=== PATIENT | male | born 1995 | race African-American/Black ===

== ENCOUNTER 2017-01-30 23:41 | Emergency (ER) | payer BC ==
[2017-01-30 23:58] VITALS: TEMP 98.3; BMI 20.7
--- NOTE | 2017-01-31 00:25 | PDOC ---
History of Present Illness - General History Source: Patient Exam Limitations: No Limitations - History of Present Illness Initial Comments: The patient is a 21 yo M with a prior history of asthma who presents with diffuse abdominal pain since earlier today. Patient states he was playing basketball earlier today then later felt the abdominal pain. Patient denies nausea, vomiting and diarrhea. Patient denies hematochezia and melena. Patient denies testicular pain. Patient denies new foods. PCP: Dr. Melgar <Yadira Aburto - Last Filed: 01/31/17 00:29> <Shea Saucedo - Last Filed: 01/31/17 02:49> - General Chief Complaint: Pain Stated Complaint: STOMACH PAIN Time Seen by Provider: 01/31/17 00:03 Past History <Yadira Aburto - Last Filed: 01/31/17 00:29> - Psycho/Social/Smoking Cessation Hx Suicidal Ideation: No Smoking Status: No Smoking History: Current some day smoker Have you smoked in the past 12 months: No Number of Cigarettes Smoked Daily: 0 Information on smoking cessation initiated: No Hx Alcohol Use: No Drug/Substance Use Hx: No <Shea Saucedo - Last Filed: 01/31/17 02:49> - Past Medical History Allergies/Adverse Reactions: Allergies Allergy/AdvReac Type Severity Reaction Status Date / Time No Known Allergies Allergy Verified 01/07/16 04:39 Home Medications: Ambulatory Orders No Home Medications 0 dose .ROUTE UTDICT 10/28/12 Review of Systems - Review of Systems Able to Perform ROS?: Yes Comments:: CONSTITUTIONAL: Absent: fever, chills, diaphoresis, generalized weakness, malaise, loss of appetite HEENT: Absent: rhinorrhea, nasal congestion, throat pain, throat swelling, difficulty swallowing, mouth swelling, ear pain, eye pain, visual Changes CARDIOVASCULAR: Absent: chest pain, syncope, palpitations, irregular heart rate, lightheadedness , peripheral edema RESPIRATORY: Absent: cough, shortness of breath, dyspnea with exertion, orthopnea, wheezing, stridor, hemoptysis GASTROINTESTINAL: +abdominal pain Absent:abdominal distension, nausea, vomiting, diarrhea, constipation, melena, hematochezia GENITOURINARY: Absent: dysuria, frequency, urgency, hesitancy, hematuria, flank pain, genital pain MUSCULOSKELETAL: Absent: myalgia, arthralgia, joint swelling SKIN: Absent: rash, itching, pallor NEUROLOGIC: Absent: headache, focal weakness or paresthesia, dizziness, unsteady gait, seizure, mental status changes, bladder or bowel incontinence PSYCHIATRIC: Absent: anxiety, depression, suicidal or homicidal ideation, hallucinations <Yadira Aburto - Last Filed: 01/31/17 00:29> *Physical Exam - Vital Signs Last Vital Signs Temp Pulse Resp BP Pulse Ox 98.3 F 65 18 126/58 99 01/30/17 23:54 01/30/17 23:54 01/30/17 23:54 01/30/17 23:54 01/30/17 23:54 - Physical Exam Comments: GENERAL: Well developed, well nourished. Awake and alert. No acute distress. HEENT: Normocephalic, atraumatic. PERRLA, EOMI. No conjunctival pallor. Sclera are non- icteric. Moist mucous membranes. Oropharynx is clear. NECK: Supple. Full ROM. No JVD. Carotid pulses 2+ and symmetric, without bruits. No thyromegaly. No lymphadenopathy. CARDIOVASCULAR: Regular rate and rhythm. No murmurs, rubs, or gallops. Distal pulses are 2+ and symmetric. PULMONARY: No evidence of respiratory distress. Decreased breath sounds in R lung. No wheezing, rales or rhonchi. ABDOMINAL: Soft. Non-tender. Non-distended. No rebound or guarding. No organomegaly. Normoactive bowel sounds. MUSCULOSKELETAL Normal range of motion at all joints. No bony deformities or tenderness. No CVA tenderness. EXTREMITIES: No cyanosis. No clubbing. No edema. No calf tenderness. SKIN: Warm and dry. Normal capillary refill. No rashes. No jaundice. NEUROLOGICAL: Alert, awake, appropriate. Cranial nerves 2-12 intact. No deficits to light touch and temperature in face, upper extremities and lower extremities. No motor deficits in the in face, upper extremities and lower extremities. Normoreflexic in the upper and lower extremities. Normal speech. Toes are down-going bilaterally. Gait is normal without ataxia. PSYCHIATRIC: Cooperative. Good eye contact. Appropriate mood and affect <Yadira Aburto - Last Filed: 01/31/17 00:29> - Vital Signs Last Vital Signs Temp Pulse Resp BP Pulse Ox 98.3 F 65 18 126/58 99 01/30/17 23:54 01/30/17 23:54 01/30/17 23:54 01/30/17 23:54 01/30/17 23:54 <Shea Saucedo - Last Filed: 01/31/17 02:49> ED Treatment Course - LABORATORY CBC & Chemistry Diagram: 01/31/17 01:30 01/31/17 01:30 <Shea Saucedo - Last Filed: 01/31/17 02:49> Medical Decision Making - Medical Decision Making 01/31/17 01:24 21-year-old male presents with abdominal pain since playing basketball at 8 PM today. No nausea, vomiting or diarrhea. No fever or chills. On exam, he has complaint of epigastric discomfort. He also has decreased breath sounds on the right -He asked him about a testicular pain and he denied it Denies any significant past medical history Denies any significant surgical history Plan CBC, chemistry, a urinalysis and chest x-ray 01/31/17 02:42 X-ray is napd CBC is unremarkable chemistries show an elevated total bili at 1.8 Transaminases slightly elevated to 40 There is no supervisor pyrotechnic loading here at the moment. I suspect he has gallstones. -he had a benign abdominal exam with no rebound or tenderness. - he has no fever or chills or nausea or vomiting. I will discharge him with instructions to avoid fatty or fried foods. I recommend he return if he has any worsening symptoms. Otherwise, he should follow up with primary care doctor and get a gallbladder ultrasound IMP epigastric pain <Shea Saucedo - Last Filed: 01/31/17 02:49> *DC/Admit/Observation/Transfer - Attestations Scribe Attestion: Documentation prepared by Ydaira Aburto, acting as medical staff services coordinator for Shea Saucedo MD/DO. <Yadira Aburto - Last Filed: 01/31/17 00:29> <Shea Saucedo - Last Filed: 01/31/17 02:49> Diagnosis at time of Disposition: Epigastric pain - Discharge Dispostion Disposition: HOME Condition at time of disposition: Stable - Patient Instructions Printed Discharge Instructions: DI for Epigastric Pain Additional Instructions: -please avoid fatty or fried foods -followup with your regular physician -I recommend an ultrasound to evaluate your gallbladder
[2017-01-31 01:24] LABS: URINE APPEARANCE CLEAR; URINE BILIRUBIN NEGATIVE (NEGATIVE); URINE BLOOD NEGATIVE (NEGATIVE); URINE COLOR YELLOW; URINE GLUCOSE (UA) NEGATIVE (NEGATIVE); URINE KETONE NEGATIVE (NEGATIVE); URINE LEUK ESTERASE NEGATIVE (NEGATIVE); URINE NITRITE NEGATIVE (NEGATIVE); URINE UROBILINOGEN 2.0 E.U/dl E.U./dl (0.2-1.0)
[2017-01-31] MEDS ORDERED: ACETAMINOPHEN 325 MG TABLET (FP) PO ONE (01:26)
[2017-01-31 01:28] LABS: URINE PROTEIN 1+ (NEGATIVE)
[2017-01-31 01:29] LABS: URINE MUCUS RARE; URINE RBC <1 /hpf (0-3); URINE WBC 1 /hpf (3-5)
[2017-01-31] MEDS ORDERED: ACETAMINOPHEN 325 MG TABLET (FP) ONE (01:43)
[2017-01-31 01:52] LABS: BASOPHIL 0.5 % (0-2.0); EOSINOPHIL 1.9 % (0-4.5); MCH 29.2 pg (25.7-33.7); MCHC 33.3 g/dl (32.0-35.9); MEAN CELL VOLUME 87.9 fl (80-96); MEAN PLT VOLUME 7.9 fl (7.5-11.1); NEUTROPHILS 73.2 % (42.8-82.8); PLATELET COUNT 246 K/MM3 (134-434); WHITE BLOOD COUNT 7.1 K/mm3 (4.0-10.0)
[2017-01-31 02:30] LABS: ALBUMIN 4.5 g/dl (3.4-5.0); ALK PHOS 60 U/L (45-117); ANION GAP 9 (8-16); BILIRUBIN,TOTAL 1.8 mg/dL (0.2-1.0); CALCIUM 9.5 mg/dL (8.5-10.1); CO2 31 mmol/L (21-32); CREATININE 1.3 mg/dL (0.7-1.3); GLUCOSE,RANDOM 93 mg/dL (74-106); SGOT/AST 40 U/L (15-37); SGPT/ALT 25 U/L (12-78)
[2017-01-31 03:05] VITALS: BP 114/66; PULSE 61
== END 2017-01-31 03:03 | disposition home or self-care (01) ==
LOC: JER 23:41
DX: R10.13 Epigastric pain (principal)
CPT/HCPCS: 36415; 71020-TC; 80053; 81003; 81015; 85025; 99282-25

== ENCOUNTER 2018-05-21 10:09 | Emergency (ER) | payer BC ==
[2018-05-21 10:43] VITALS: BP 123/81; PULSE 75; TEMP 98.9; BMI 21.9
--- NOTE | 2018-05-21 11:33 | PDOC ---
History of Present Illness - General Chief Complaint: Sore Throat Stated Complaint: SORE THROAT Time Seen by Provider: 05/21/18 11:05 History Source: Patient Exam Limitations: No Limitations - History of Present Illness Initial Comments: 05/21/18 11:14 c/o sore throat for 4-5 days getting worse. Past History - Past Medical History Allergies/Adverse Reactions: Allergies Allergy/AdvReac Type Severity Reaction Status Date / Time No Known Allergies Allergy Verified 05/21/18 10:40 Home Medications: Ambulatory Orders No Home Medications 0 dose .ROUTE UTDICT 10/28/12 Dexamethasone [Decadron] 8 mg PO ONCE #2 tablet 05/21/18 Penicillin V Potassium [Pen Vee K -] 250 mg PO QID #40 tablet 05/21/18 COPD: No - Suicide/Smoking/Psychosocial Hx Smoking Status: No Smoking History: Current some day smoker Have you smoked in the past 12 months: No Number of Cigarettes Smoked Daily: 0 Information on smoking cessation initiated: No Hx Alcohol Use: No Drug/Substance Use Hx: No Review of Systems - Review of Systems Able to Perform ROS?: Yes Is the patient limited Bermudian proficient: No Constitutional: No: Symptoms Reported HEENTM: Yes: Symptoms Reported Respiratory: No: Symptoms reported *Physical Exam - Vital Signs Last Vital Signs Temp Pulse Resp BP Pulse Ox 98.9 F 75 16 123/81 99 05/21/18 10:41 05/21/18 10:41 05/21/18 10:41 05/21/18 10:41 05/21/18 10:41 - Physical Exam General Appearance: Yes: Nourished, Appropriately Dressed HEENT: positive: EOMI, MEGAN, TMs Normal, Pharyngeal Erythema, Tonsillar Exudate , Tonsillar Erythema (bilateral exudates) Neck: positive: Supple Respiratory/Chest: positive: Lungs Clear, Normal Breath Sounds Cardiovascular: positive: Regular Rhythm, Regular Rate Gastrointestinal/Abdominal: positive: Normal Bowel Sounds, Soft Musculoskeletal: positive: Normal Inspection Extremity: positive: Normal Capillary Refill, Normal Inspection, Normal Range of Motion Integumentary: positive: Normal Color, Dry, Warm Neurologic: positive: Fully Oriented, Alert, Normal Mood/Affect, Normal Response , Motor Strength 5/5 Medical Decision Making - Medical Decision Making 05/21/18 11:15 sore throat 4 days no fever, had URI symptoms prior to sore throat exam positive for strep will treat with amox decadron one dose *DC/Admit/Observation/Transfer Diagnosis at time of Disposition: Strep pharyngitis - Discharge Dispostion Disposition: HOME Condition at time of disposition: Good - Prescriptions Prescriptions: Dexamethasone [Decadron] 8 mg PO ONCE #2 tablet Penicillin V Potassium [Pen Vee K -] 250 mg PO QID #40 tablet - Referrals Referrals: Jimmie Melgar MD [Primary Care Provider] - - Patient Instructions Printed Discharge Instructions: DI for Strep Throat Additional Instructions: gargle with warm salt water 4-5 times a day take penvk for 10 days take the one dose of decadron this will help with the pain take ibuprofen 600mg every 8hrs for pain return if worse - Post Discharge Activity Forms/Work/School Notes: Back to Work
== END 2018-05-21 12:28 | disposition home or self-care (01) ==
LOC: JERFT 10:09
DX: J02.0 Streptococcal pharyngitis (principal); B95.5 Unspecified streptococcus as the cause of diseases classified elsewhere
CPT/HCPCS: 99281-25

== ENCOUNTER 2019-03-29 19:32 | Emergency (ER) | payer BC ==
[2019-03-29 19:41] VITALS: BP 138/67; PULSE 75; TEMP 98.1; BMI 22.2
[2019-03-29] MEDS ORDERED: BACITRACIN 0.9 GM PACKET TP ONE (20:02)
--- NOTE | 2019-03-29 20:08 | PDOC ---
History of Present Illness - General Chief Complaint: Wound Stated Complaint: LEG WOUND 03/29/2019 Time Seen by Provider: 03/29/19 19:53 History Source: Patient Exam Limitations: No Limitations - History of Present Illness Initial Comments: 03/29/19 20:03 HISTORY OF PRESENT ILLNESS: This is a right-hand dominant 23-year-old man with denies medical history presents emergency department for reevaluation of puncture wound sustained at 3 AM. Patient reports he was out with his friends and was involved in a [place] where he tried to climb over a fence unsuccessfully. Patient reports he got to the top of the fence and there were some sharp edges causing him to scrape his left shoulder and sustained multiple puncture wounds to left hand and left posterior thigh. Patient reports was seen at [facility] last night was given a tetanus booster at that time. Patient does not believe he received medical care and is here for reevaluation of injuries. No recent travel or sick contacts. PAST MEDICAL HISTORY: Denies past medical history SURGICAL HISTORY: Denies ALLERGIES: No known drug allergies REVIEW OF SYSTEMS General/Constitutional: Denies fever or chills. Denies weakness, weight change. HEENT: Denies change in vision. Denies ear pain or discharge. Denies sore throat. Cardiovascular: Denies chest pain or shortness of breath. Respiratory: Denies cough, wheezing, or hemoptysis. Gastrointestinal: Denies nausea, vomiting, diarrhea or constipation. Denies rectal bleeding. Genitourinary: Denies dysuria, frequency, or change in urination. Musculoskeletal: see HPI Skin and breasts: see HPI Neurologic: Denies headache, vertigo, loss of consciousness, or loss of sensation. Psychiatric: Denies depression or anxiety. Endocrine: Denies increased thirst. Denies abnormal weight change. Hematologic/Lymphatic: Denies anemia, easy bleeding, or history of blood clots. Allergic/Immunologic: Denies hives or skin allergy. Denies latex allergy. PHYSICAL EXAM General Appearance: Well-appearing, appropriately dressed. No apparent distress , no intoxication. HEENT: EOMI, PERRLA, normal ENT inspection, normal voice, TMs normal, pharynx normal. No conjunctival pallor. No photophobia, scleral icterus. Neck: Supple. Trachea midline. No tenderness, rigidity, carotid bruit, stridor , lymphadenopathy, or thyromegaly. Respiratory/Chest: Lungs CTAB. No shortness of breath, chest tenderness, respiratory distress, accessory muscle use. No crackles, rales, rhonchi, stridor , wheezing, dullness Cardiovascular: RRR. S1, S2. No JVD, murmur, bradycardia, tachycardia. Vascular Pulses: Dorsalis-Pedis (R): 2+, Dorsalis-Pedis (L): 2+ Gastrointestinal/Abdominal: Normal bowel sounds. Abdomen soft, non-distended. No tenderness or rebound tenderness. No organomegaly, pulsatile mass, guarding, hernia, hepatomegaly, splenomegaly. Lymphatic: No adenopathy, tenderness. Musculoskeletal/Extremities: Normal inspection. FROM of all extremities, normal capillary refill. Pelvis Stable. No CVA tenderness. No tenderness to extremities, pedal edema, swelling, erythema or deformity. Integumentary: Patient with 2 4 cm x 0.2 cm linear superficial abrasions to the left anterior shoulder. Puncture wound presents to the medial posterior aspect of the left thigh. No discharge or drainage is present from the thigh wound. Multiple superficial puncture wounds present to the palmar surface of the left hand. Patient with decreased flexion and extension of the fingers secondary to pain. Scant erythema noted surrounding wounds likely due to noncompliance with topical antibiotic use. Neurologic: drone operator II-XII intact. Fully oriented, alert. Appropriate mood/affect. Motor strength 5/5. No appreciable EOM palsy, facial droop or sensory deficit. Past History - Past Medical History Allergies/Adverse Reactions: Allergies Allergy/AdvReac Type Severity Reaction Status Date / Time No Known Allergies Allergy Verified 05/21/18 10:40 Home Medications: Ambulatory Orders No Home Medications 0 dose .ROUTE UTDICT 10/28/12 Dexamethasone [Decadron] 8 mg PO ONCE #2 tablet 05/21/18 Penicillin V Potassium [Pen Vee K -] 250 mg PO QID #40 tablet 05/21/18 Cephalexin Monohydrate [Keflex -] 500 mg PO BID #10 capsule 03/29/19 COPD: No - Suicide/Smoking/Psychosocial Hx Smoking Status: No Smoking History: Never smoked Have you smoked in the past 12 months: No Number of Cigarettes Smoked Daily: 0 Hx Alcohol Use: No Drug/Substance Use Hx: No *Physical Exam - Vital Signs Last Vital Signs Temp Pulse Resp BP Pulse Ox 98.1 F 75 20 138/67 100 03/29/19 19:37 03/29/19 19:37 03/29/19 19:37 03/29/19 19:37 03/29/19 19:37 Medical Decision Making - Medical Decision Making 03/29/19 20:08 A/P: 23-year-old male multiple puncture wounds status post inability to climb over a chain-link fence Patient with 2 4 cm x 0.2 cm linear superficial abrasions to the left anterior shoulder. Puncture wound presents to the medial posterior aspect of the left thigh. No discharge or drainage is present from the thigh wound. Multiple superficial puncture wounds present to the palmar surface of the left hand. Patient with decreased flexion and extension of the fingers secondary to pain. Scant erythema noted surrounding wounds likely due to noncompliance with topical antibiotic use. X-rays of the left hand Bacitracin to wounds with dry sterile dressings placed Reassess 03/29/19 20:14 X-rays as read by me: No acute fractures or dislocation present. No foreign bodies are visualized. Given minor erythema I will discharge the patient home with prescription for keflex and instructions to follow-up with his primary doctor. *DC/Admit/Observation/Transfer Diagnosis at time of Disposition: Wounds, multiple - Discharge Dispostion Disposition: HOME Condition at time of disposition: Fair Decision to Admit order: No - Prescriptions Prescriptions: Cephalexin Monohydrate [Keflex -] 500 mg PO BID #10 capsule - Referrals - Patient Instructions Additional Instructions: Take Keflex 500 mg 2 times a day for the next 5 days Finish all antibiotics even if you feel better. Apply warm compresses to affected areas as needed. Apply Bacitracin to wounds twice a day. Return to emergency department for any worsening pain, drainage, or any other concerns. Thank you very much for choosing us to provide your emergent health care needs. - Post Discharge Activity
== END 2019-03-29 20:25 | disposition home or self-care (01) ==
LOC: JERFT 19:32
DX: S61.432A Puncture wound without foreign body of left hand, initial encounter (principal); S71.132A Puncture wound without foreign body, left thigh, initial encounter; S40.212A Abrasion of left shoulder, initial encounter; W26.8XXA Contact with other sharp object(s), not elsewhere classified, initial encounter; Y93.39 Activity, other involving climbing, rappelling and jumping off; Y92.89 Other specified places as the place of occurrence of the external cause; Y99.8 Other external cause status
CPT/HCPCS: 73130-TC-LT-FY; 99282-25

== ENCOUNTER 2023-04-03 13:04 | Emergency (ER) | payer BC, OTHER ==
[2023-04-03 13:21] VITALS: BP 119/68; PULSE 61; RESP 18; TEMP 98.2; BMI 22.9
[2023-04-03] MEDS ORDERED: IBUPROFEN 600 MG TABLET (FP) PO ONE ×2 (14:39→14:43)
== END 2023-04-03 15:39 | disposition home or self-care (01) ==
LOC: JERFT 13:04
DX: S60.032A Contusion of left middle finger without damage to nail, initial encounter (principal); M79.645 Pain in left finger(s); R22.32 Localized swelling, mass and lump, left upper limb; X58.XXXA Exposure to other specified factors, initial encounter
CPT/HCPCS: 73140-TC-LT-FY; 99283-25